=== PATIENT | female | born 1990 | race Caucasian/White ===

== ENCOUNTER 2016-06-30 07:29 | Inpatient (IN) ==
[2016-06-30] MEDS ORDERED: LACTATED RINGERS 500 ML IV PRN (07:43)
[2016-06-30] MEDS ORDERED: ONDANSETRON 4 MG/2 ML VIAL IV PRN ×2 (07:43→13:58)
[2016-06-30] MEDS ORDERED: hydrOXYzine HCL 25 MG/1 ML VIAL IM PRN (07:46)
[2016-06-30] MEDS ORDERED: ePHEDrine 50 MG/ML AMP IV PRN (07:46)
[2016-06-30] MEDS ORDERED: CITRIC ACID/SODIUM CITRATE 30 ML UDCUP PO ONE (07:46)
[2016-06-30] MEDS ORDERED: FAMOTIDINE 20 MG/2 ML VIAL IV ONE (07:46)
[2016-06-30] MEDS ORDERED: diphenhydrAMINE 50 MG/1 ML VIAL IV PRN (07:46)
[2016-06-30] MEDS ORDERED: fentaNYL 2 MCG/ROPIV 0.2% EPID 150 ML EPIDURAL SCH (07:46)
[2016-06-30] MEDS ORDERED: LACTATED RINGERS 1,000 ML IV SCH ×2 (08:00→20:30)
[2016-06-30] MEDS ORDERED: OXYTOCIN/LR 20 UNIT/1,000 ML BAG IV SCH (08:00)
[2016-06-30] MEDS ORDERED: AMPICILLIN INJ 2,000 MG in SODIUM CHLORIDE 0.9% 100 ML IV ONE (08:04)
[2016-06-30 08:42] LABS: Basophils % 0.2 % (0.0-0.8); Eosinophils # 0.1 10*3/uL (0.0-0.87); Eosinophils % 0.4 % (0.00-10.9); Hematocrit 35.8 VOL% (35.7-47.0); Hemoglobin 11.5 GM/DL (12.0-16.0); Immature Granulocytes % 0.7 %; Immature Granulocytes Absolute 0.09 #; Lymphocytes # 2.1 10*3/uL (1.4-4.0); Lymphocytes % 16.5 % (21.3-54.2); Mean Corpuscular HGB Conc 32.1 GM/DL (32-36); Mean Corpuscular Hemoglobin 29 PG (27-34); Mean Corpuscular Volume 89.7 FL (87-102); Monocytes # 0.7 10*3/uL (0.11-0.8); Monocytes % 5.8 % (1.7-12.7); Neutrophils # 9.6 10*3/uL (1.4-7.4); Neutrophils % 76.4 % (38.7-73.9); Platelet Count 118 10*3/uL (130-400); Red Blood Count 3.99 10*6/uL (3.8-5.5); Red Cell Distribution Width 14.1 % (9.3-17.3); White Blood Count 12.5 10*3/uL (4.5-13.71)
[2016-06-30 08:47] LABS: Apearance,Urine Slightly Hazy (Clear); Bilirubin,Urine Negative (Negative); Blood, Urine Small mg/dL (Negative); Glucose,Urine (UA) Negative (Negative); Ketones,Urine Negative (Negative); Mucus,Urine Occasional /LPF (Occasional); Nitrite,Urine Negative (Negative); Protein,Urine Negative; RBC,Urine 1 /HPF (0-4); Squamous Epithelial Cell,Urine Occasional /HPF (0-10); Urine Color Yellow (Yellow); Urine Specific Gravity 1.018 (1.001-1.035); Urine Urobilinogen < 2.0 EU/DL (0.2-1.0); WBC,Urine 1 /HPF (0-6)
[2016-06-30 08:59] LABS: Platelet Estimate Adequate
[2016-06-30 09:00] LABS: INR 0.9; PT Patient Result 9.9 SECS; Partial Thromboplastin Time 29.7 SECS (0-40)
[2016-06-30 09:09] LABS: Alanine Aminotransferase 9 U/L (13-56); Albumin 2.5 G/DL (3.4-5.0); Alkaline Phosphatase 236 U/L (45-117); Aspartate Amino Transferase 12 U/L (0-37); Bilirubin,Total < 0.39 MG/DL (0.2-1.0); Blood Urea Nitrogen 5 MG/DL (7-18); Calcium 8.5 MG/DL (8.5-10.1); Glucose 130 MG/DL (74-106); Osmolality,Calculated 284.8 MOS/KG (273-304); Potassium 3.8 MMOL/L (3.5-5.1); Sodium 144 MMOL/L (136-145)
--- NOTE | 2016-06-30 11:01 | OB/GYN History & Physical ---
History of Present Illness Chief complaint: in labor ..admitted at 6 cm ...gestational hyperternsion History of present illness: Ms. Hall is a 26 year old female Home Medications Medication Instructions Recorded Confirmed Type Vit No.130/Iron/FA 1 tablet PO DAILY 06/22/16 06/30/16 History [ Tablet] Allergies Allergy/AdvReac Type Severity Reaction Status Date / Time Hydralazine [From Apresoline] Allergy Mild HIVES Verified 06/22/16 13:10 - Constitutional Constitutional: Present: as per HPI. Absent: anorexia, chills, daytime sleepiness, excessive sweating - EENT Eyes: Present: as per HPI. Absent: blurry vision - Cardiovascular Cardiovascular: Present: as per HPI. Absent: chest pain at rest, chest pain with activity, claudication, diaphoresis, dyspnea - Gastrointestinal Gastrointestinal: Present: as per HPI - Genitourinary Genitourinary: Present: as per HPI - Musculoskeletal Musculoskeletal: Present: as per HPI - Neurological Neurological: Present: as per HPI. Absent: abnormal gait Medical,Surgical,& Family Hx - Medical History Cardio: No history of: Aneurysm, Cardiac Dysrhythmia, Cerebrovascular Disease, Congenital Heart Disease, CHF, CAD Psychological: No history of: Anxiety Disorders, ADHD, Behavior Problems, Bipolar Disorder, Depression Respiratory: No history of: Asthma, Bronchitis, COPD, Intubation Gastrointestinal: No history of: Bowel Obstruction, Clostridium Difficile, Crohn's Disease Hematology: No history of: Anemia, Blood Transfusion Reaction Reproductive: No history of: Ectopic , Complication - Surgical History Cardiac Surgeries: Patient Denies: Cardiac Catheterization Abdominal Surgeries: Patient denies: Abdominal Surgery Reproductive Surgeries: Patient denies;: Section - Family History Family History: Reports;: Family Cancer (GM OVARIAN) Denies;: Family Anesthesia Reaction, Family Diabetes, Family Heart Disease, Family Hematology, Family Hypertension, Family Psychiatric Problems, Family Stroke, Additional Family History - Social History Smoking Status: Never smoker Frequency of Alcohol Use: None Type of Drug Use: None Exam INTERN - Constitutional General appearance: normal weight - Head Head exam: Present: normal inspection - Eye Eye exam: Present: EOMI, conjunctival injection - ENT ENT exam: Present: normal exam, normal external ear exam - Neck Neck exam: Present: normal inspection - Respiratory Respiratory exam: Present: clear to auscultation bilaterally. Absent: accessory muscle use, chest wall tenderness, decreased breath sounds, prolonged expiratory phase - Breast Breasts: as per HPI Menstruation: as per HPI - Cardiovascular Cardiovascular exam: Present: regular rate and rhythm - GI/Abdominal GI/Abdominal exam: Present: normal bowel sounds - Extremities Exam Extremities exam: Present: normal inspection, normal capillary refill - Back Exam Back exam: Present: normal inspection. Absent: CVA tenderness (L), CVA tenderness (R) Results - Labs CBC & BMP: 06/30/16 08:22 06/30/16 08:22
[2016-06-30] MEDS ORDERED: AMPICILLIN INJ 1,000 MG in SODIUM CHLORIDE 0.9% 100 ML IV SCH (12:00)
[2016-06-30] MEDS ORDERED: OXYTOCIN/LR 20 UNIT/1,000 ML BAG IV ONE (13:58)
[2016-06-30] MEDS ORDERED: LANOLIN 50% CREAM 0.3 OZ TUBE TOP PRN (13:58)
[2016-06-30] MEDS ORDERED: HYDROCORTISONE 2.5% RECTAL CREAM 30 GM TUBE TOP PRN (13:58)
[2016-06-30] MEDS ORDERED: ACETAMINOPHEN 325 MG TABLET PO PRN (13:58)
[2016-06-30] MEDS ORDERED: BISACODYL 10 MG SUPP RECTAL PRN (13:58)
[2016-06-30] MEDS ORDERED: WITCH HAZEL PADS 100/JAR TOP PRN (13:58)
[2016-06-30] MEDS ORDERED: oxyCODONE/ACETAMINOPHEN 5-325 MG TABLET PO PRN ×2 (13:58)
[2016-06-30] MEDS ORDERED: BENZOCAINE 20%/MENTHOL 0.5% SPRAY 56 GM CAN TOP PRN (13:58)
[2016-06-30] MEDS ORDERED: MEASLES/MUMPS/RUBELLA VACCINE 0.5 ML VIAL SUBCUT ONE (15:00)
[2016-06-30] MEDS ORDERED: RHO(D) IMMUNE GLOBULIN 300 MCG SYRINGE IM ONE (15:00)
[2016-06-30] MEDS ORDERED: DIPH/TET/ACEL PERT BOOSTER VACCINE 0.5 ML VIAL IM ONE (15:00)
--- NOTE | 2016-06-30 15:00 | Operative Note ---
Date of procedure: 06/30/16 Pre-op diagnosis: gestational hypertension ...active labor at 6 cm ...37 1/7 weeks Post-op diagnosis: same Procedure: the patient was admitted after she presented for e cervical check after she was ntoed to be 4 cm in the office in the am ...she was noted to be 6 cm on recheck this am and also had labile blood pressures for which she had been originally sent in for .....she had AROM of clear fluid after an epidrual and was noted to be 6-7 cm ....Seh ahd rapid progression to 8 cm and then to complete ..She pushed to [facility] without complication the head suctioned in OP presentation . at the perineum ....the body was delivered and then dried and placed on the drapes ...the cord was milked and then doubly camped and cut ....cord blood was obtained ....the placenta was delivered without complication and then the uterus was massaged and the perineum evaluated with a midline laceration noted repired with 3-0 vicryl in a sub Q fashion ....well tolerated findings showed female ...weight and were pending ... weight 7-6 EBL 100 cc. Anesthesia: epidural Surgeon / Physician: Lalitha Salas Estimated blood loss: minimal Specimens: other (placetna and cord blood) Condition: stable Disposition: floor Results - Labs CBC & BMP: 06/30/16 08:22 06/30/16 08:22 Discharge Plan - Discharge Medications No Action Vit No.130/Iron/FA [ Tablet] 1 tablet PO DAILY - Follow Up or Referral - Forms/Instructions
[2016-06-30] MEDS: FUROSEMIDE 20 MG/2 ML VIAL IV SCH (19:56)
[2016-06-30] MEDS: DOCUSATE SODIUM 100 MG CAPSULE PO SCH (21:05)
[2016-06-30] MEDS: LABETALOL 100 MG TABLET PO SCH (21:05)
[2016-07-01] MEDS: IBUPROFEN 800 MG TABLET PO PRN ×3 (00:59→17:15)
[2016-07-01 05:06] LABS: Basophils % 0.2 % (0.0-0.8); Eosinophils # 0.1 10*3/uL (0.0-0.87); Eosinophils % 0.6 % (0.00-10.9); Hematocrit 29.3 VOL% (35.7-47.0); Hemoglobin 9.5 GM/DL (12.0-16.0); Immature Granulocytes % 0.3 %; Immature Granulocytes Absolute 0.04 #; Lymphocytes # 2.8 10*3/uL (1.4-4.0); Lymphocytes % 24.3 % (21.3-54.2); Mean Corpuscular HGB Conc 32.4 GM/DL (32-36); Mean Corpuscular Hemoglobin 29 PG (27-34); Mean Corpuscular Volume 88.5 FL (87-102); Mean Platelet Volume 12.7 FL (9.6-12.0); Monocytes # 0.9 10*3/uL (0.11-0.8); Monocytes % 7.6 % (1.7-12.7); Neutrophils # 7.7 10*3/uL (1.4-7.4); Platelet Count 139 10*3/uL (130-400); Red Blood Count 3.31 10*6/uL (3.8-5.5); Red Cell Distribution Width 14.3 % (9.3-17.3); White Blood Count 11.5 10*3/uL (4.5-13.71)
[2016-07-01] MEDS: DOCUSATE SODIUM 100 MG CAPSULE PO SCH ×2 (09:41→20:35)
[2016-07-01] MEDS: LABETALOL 100 MG TABLET PO SCH ×2 (09:41→20:35)
[2016-07-01] MEDS: FUROSEMIDE 20 MG/2 ML VIAL IV SCH (09:42)
--- NOTE | 2016-07-01 13:45 | OB/GYN Progress Note ---
Assessment and Plan (1) Anemia Status: Acute Current Visit: Yes Qualifiers: Anemia type: iron deficiency NURSING UNIT MANAGER - PN: Subj Interval history: doing well ....diuresed after lasix and has ahd blood pressures in the 120 -140 range ...doing well overall ....bleeding minimal ......for discharge in am ....breast feeding Exam NURSING UNIT MANAGER - Constitutional Vitals: Vital Signs Temp Pulse Resp BP 07/01/16 04:00 97.4 F L 66 20 102/59 07/01/16 00:00 98.4 F 76 20 129/63 06/30/16 20:00 98.4 F 96 H 18 175/80 General appearance: normal weight, no acute distress - Head Head exam: Present: normal inspection, normocephalic - ENT ENT exam: Present: normal exam, normal external ear exam - Respiratory Respiratory exam: Present: clear to auscultation bilaterally - Breast Breasts: as per HPI Menstruation: as per HPI - Cardiovascular Cardiovascular exam: Present: regular rate and rhythm - GI/Abdominal GI/Abdominal exam: Present: normal bowel sounds. Absent: ascites, distended, firm Results - Labs CBC & BMP: 07/01/16 04:48 06/30/16 08:22
[2016-07-01] MEDS: IRON (CARBONYL)/VIT C/B12/FA TABLET PO SCH (17:30)
[2016-07-02 08:02] VITALS: BP 127/80
[2016-07-02] MEDS: FUROSEMIDE 20 MG/2 ML VIAL IV SCH (08:49)
[2016-07-02] MEDS: DOCUSATE SODIUM 100 MG CAPSULE PO SCH (08:49)
[2016-07-02] MEDS: LABETALOL 100 MG TABLET PO SCH (08:49)
[2016-07-02] MEDS: IRON (CARBONYL)/VIT C/B12/FA TABLET PO SCH (08:49)
--- NOTE | 2016-07-02 10:04 | Discharge Summary ---
Hospital Course - Hospital Course Hospital Course: Pt admitted with elevated blood pressures and with active labor at 6 cm ....she had an epidural andf then progressed normally to complete and pushed and delivered in OP presentation ........Pt did well .....she had diuresis with lasix and then had normal blood pressures ....PT to be discahrged with pain meds of Tyleonol 3 and motrin 800 mg ....follow-up in 1 weekfro a blood pressures check and 4 weeks for pap - Time spent with patient Time with patient DS: Greater than 30 minutes Diagnosis - Discharge Diagnosis (1) Anemia Status: Acute (2) Gestational [-induced] hypertension without significant proteinuria , complicating childbirth Status: Acute Specialty Discharge - Follow Up or Referrals Discharge Plan - Discharge Data Disposition: Disch To Home/Self Care Discharge Diet: advance to your usual diet Hygiene: no restrictions Weight Bearing at Discharge: full weight bearing Contact your physician if you experience:: fever over 101, Difficulty voiding, Redness or swelling, Nausea/Vomiting - Discharge Medications No Action Vit No.130/Iron/FA [ Tablet] 1 tablet PO DAILY - Follow Up or Referral - Forms/Instructions Instructions: Perineal Care (DC), Vaginal Delivery (DC), Anemia (DC) , Bleeding (DC), Sitz Bath (DC) Exam - Constitutional Vitals: Period Temp Pulse Resp BP Sys/Eason Pulse Ox Last 24 Hr 97.6 F-97.9 F 75-90 18-20 126-141/70-84 97-99 General appearance: normal weight - Eye Eye exam: Present: EOMI - ENT ENT exam: Present: normal exam - Neck Neck exam: Present: normal inspection - Respiratory Respiratory exam: Present: clear to auscultation bilaterally. Absent: accessory muscle use, chest wall tenderness - Cardiovascular Cardiovascular exam: Present: regular rate and rhythm - GI/Abdominal GI/Abdominal exam: Present: normal bowel sounds. Absent: ascites, distended, firm, guarding - Extremities Exam Extremities exam: Present: normal inspection, normal capillary refill - Back Exam Back exam: Present: normal inspection. Absent: CVA tenderness (L), CVA tenderness (R) - Neurological Exam Neurological exam: Present: alert, oriented X3, normal gait - Psychiatric Psychiatric exam: Present: normal affect, normal mood - Skin Skin exam: Present: normal color DS: Provider Date of admission: 06/30/16 07:43 Primary care physician: . No PCP Attending physician on admission: Iva Harding Consults: 06/30/16 07:43 Consult to Anesthesiology [CONS] Routine Consulting Provider: Reason for Anesthesiology: Epidural Consult Comment: Epidural for pain managment 06/30/16 13:58 Consult to Certified Financial Planner [CONS] Routine Consult Certified Financial Planner: Breast Feeding 07/02/16 07:59 Consult to Dietitian [CONS] Routine Reason for Dietitian: Dietary Consult Discharging clinician: Iva Harding Expected date of discharge: 07/02/16
[2016-07-02] MEDS: IBUPROFEN 800 MG TABLET PO PRN (10:52)
== END 2016-07-02 12:00 | disposition home or self-care (01) | DRG 775 ==
LOC: N.LD 07:29 → N.LDOUT 07:29 → N.LD 07:43 → N.OB 07-01 15:40
PROVIDERS: ADMIT Obstetrics & Gynecology; ATTEND Obstetrics & Gynecology